=== PATIENT | female | born 1975 | race Caucasian/White ===

== ENCOUNTER → 2018-09-21 15:01 | Outpatient (CLI) | payer OTHER, SELFPAY ==
--- NOTE | 2018-09-21 15:03 | MRI_ITS ---
STUDY: MR CHOLANGIOPANCREATOGRAPHY (MRCP) REASON FOR EXAM: Female, 43 years old. Pain x5 weeks. Status post cholecystectomy. TECHNIQUE: Standard MRCP technique was utilized. COMPARISON: CT dated September 20, 2018 FINDINGS: Motion artifact degrades anatomic detail. Gall Bladder: Gall bladder is surgically absent. Intrahepatic ducts: There is intrahepatic ductal dilatation. Common hepatic duct: There is dilatation of the common hepatic duct. Common bile duct: There is dilatation of the common bile duct measuring up to 15 mm. Pancreatic duct: There is dilatation of the pancreatic duct. IMPRESSION: Dilatation of the intrahepatic common hepatic, common bile and pancreatic ducts with no discrete intraluminal filling defects identified. Please note there is a separate MRI report of the abdomen without contrast. Electronically Signed: Rossy Carrillo MD at 18:20 EDT Tel , Service support , STUDY: MRI ABDOMEN WITHOUT CONTRAST REASON FOR EXAM: Female, 43 years old. Cholecystectomy [address] TECHNIQUE: Standardized fat and water weighted pulse sequences were obtained in all 3 orthogonal planes. COMPARISON: CT dated September 20, 2018 FINDINGS: Motion degrades anatomic detail. The visualized lung bases are unremarkable. The visualized portions of the heart are within normal limits. There is intra and extrahepatic ductal dilatation present. There are surgical clips in the gallbladder fossa consistent with a prior cholecystectomy. Normal spleen. There is pancreatic ductal dilatation within the body and tail with an abrupt termination at the pancreatic head. There is mild atrophy of the pancreatic tail and body noted. There appears to be soft tissue prominence within the pancreatic head and uncinate process measuring 2.4 x 3.1 cm. Normal bilateral adrenal glands. There is a simple 8.7 mm right renal cyst. Normal left kidney. Normal visualized stomach. Normal small intestine. Normal colon. The appendix is visualized and appears normal. Normal abdominal aorta. Normal inferior vena cava. Normal retroperitoneum. Normal abdominal wall. Normal osseous structures. MRI/MRCP Abdomen without Contrast IMPRESSION: Dilatation of the pancreatic duct associated with atrophy of the pancreatic body and tail and a possible pancreatic mass within the pancreatic head and uncinate process, intravenous contrast or an endoscopic ultrasound may be useful for further characterization. Intra and extrahepatic ductal dilatation. Electronically Signed: Rossy Carrillo MD at 18:32 EDT Tel , Service support ,
[2018-09-23 14:35] LABS: Carbohydrate AG 19-9 120 U/mL (0-35); Carcinoembryonic Antigen 5.3 ng/mL (0.0-4.7)
== END ==
PROVIDERS: Physician Assistant; Family Provider Family Medicine; PCP Family Medicine; Referring Provider Surgery; Visit Provider Surgery
DX: R10.9 Unspecified abdominal pain (principal); R93.5 Abnormal findings on diagnostic imaging of other abdominal regions, including retroperitoneum
CPT/HCPCS: 36415; 74181; 82378; 86301